=== PATIENT | male | born 1970 | race American Indian/Alaskan Native ===

== ENCOUNTER 2020-09-30 08:40 | Emergency (ER) | payer OTHER ==
[2020-09-30 08:48] VITALS: BP 173/121
[2020-09-30] MEDS ORDERED: KETOROLAC 60 MG/2 ML INJ IM ONE (09:33)
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
== END 2020-09-30 11:27 | disposition home or self-care (01) ==
LOC: ED 08:40
DX: S39.012A Strain of muscle, fascia and tendon of lower back, initial encounter (principal); I10 Essential (primary) hypertension; V84.5XXA Driver of special agricultural vehicle injured in nontraffic accident, initial encounter; Y93.89 Activity, other specified; Y92.89 Other specified places as the place of occurrence of the external cause; Y99.8 Other external cause status
CPT/HCPCS: 72100; 96372; 99283; J1885